=== PATIENT | male | born 1965 | race Caucasian/White ===

== ENCOUNTER 2017-07-21 05:22 | Emergency (ER) | payer MEDICAID ==
[~2017-07-21] VITALS: Ht 185.4 cm; Wt 96.4 kg
[2017-07-21 05:23] VITALS: BP 159/102
== END 2017-07-21 06:46 | disposition left against medical advice (07) ==
LOC: ED 05:38
DX: Z48.01 Encounter for change or removal of surgical wound dressing (principal)
CPT/HCPCS: 99281